=== PATIENT | female | born 1950 | race African-American/Black ===

== ENCOUNTER → 2016-06-09 | Outpatient (CLI) | payer MEDICAID | LOC: WI 12:37 | PROVIDERS: ATTEND Internal Medicine | DX: Z12.31 Encounter for screening mammogram for malignant neoplasm of breast (principal) | CPT/HCPCS: 77063; G0202; 77067 ==

== ENCOUNTER 2017-07-12 15:06 | Day surgery (SDC) | payer MEDICAID ==
[2017-07-12] MEDS ORDERED: NALOXONE HCL INJ/PF 0.4 MG/1 ML SDV ONE (15:33)
[2017-07-12] MEDS ORDERED: EPINEPHRINE INJ 1 MG/10 ML DISP.SYRIN ONE (15:34)
[2017-07-12] MEDS ORDERED: GLUCAGON,HUMAN RECOMB 1 MG INJ ONE (15:34)
[2017-07-12] MEDS ORDERED: FENTANYL CITRATE INJ/PF 100 MCG/2 ML AMPUL ONE (15:34)
[2017-07-12] MEDS ORDERED: FLUMAZENIL INJ 0.5 MG/5 ML VIAL ONE (15:34)
[2017-07-12] MEDS: MIDAZOLAM 2 MG/2 ML INJ ONE ×2 (16:02→16:08)
--- NOTE | 2017-07-12 17:00 | Operative Report ---
Operative Report DATE OF SURGERY: 07/12/17 Operative Report: Pre-op diagnosis: Rectal bleeding and IBS Post-op diagnosis: 1. Sigmoid diverticulum 2. Limited view of the colon 3. Need for sedation reversal 4. Transient wide-complex tachycardia Surgery: Colonoscopy Medications: Versed 3 mg Fentanyl 100 mcg, Narcan 0.4 mg, Romazicon 0.5 mg IV push Tissue removed: None Procedure: After informed consent obtained from patient, conscious sedation was achieved. A digital rectal examination was performed and this was unremarkable. The colonoscope was inserted into the rectum and advanced to the cecum. The appendiceal orifice and the terminal ileum were both identified. The mucosa was examined into details as the colonoscope was slowly pulled out of the patient. The endoscope was retroflexed in the rectum. Patient tolerated the procedure well. Findings: View of all of the colon was limited due to retained stool. No large lesions are identified but small and flat polyps will be missed. A single diverticulum was noted in the sigmoid colon. Rectum: Normal except for internal hemorrhoids Plan: At the end of the procedure patient O2 saturation dropped to the 60s and she was not breathing as well. She received Romazicon and Narcan with immediate response. Her cardiac rhythm did change from normal to a wide-complex tachycardia with a maximum rate of 98 lasting for about 8mins. Her blood pressure remained stable during this episode. A 12-lead EKG showed sinus rhythm. She will be observed overnight with cardiology consult. She will need a repeat colonoscopy at some point in the future OPERATION: .
[2017-07-12 17:31] LABS: ABSOLUTE EOSINOPHILS # (AUTO) 0.1 10^3/uL (0.0-0.6); ABSOLUTE LYMPHOCYTES (AUTO) 1.5 10^3/uL (0.5-4.7); ABSOLUTE MONOCYTES (AUTO) 0.4 10^3/uL (0.1-1.4); ABSOLUTE NEUT (AUTO) 4.4 10^3/uL (1.7-8.2); BASOPHILS % (AUTO) 0.3 % (0-2); EOSINOPHILS % (AUTO) 1.9 % (0-6); HEMATOCRIT 38.3 % (36.0-47.0); HEMOGLOBIN 12.2 g/dL (12.0-15.5); LYMPHOCYTES % (AUTO) 22.7 % (13-45); MEAN CORPUSCULAR HEMOGLOBIN 29.5 pg (27.0-33.4); MEAN CORPUSCULAR VOLUME 92 fl (80-97); MONOCYTES % (AUTO) 6.5 % (3-13); PLATELET COUNT 170 10^3/uL (150-450); RED BLOOD COUNT 4.15 10^6/uL (3.72-5.28); RED CELL DISTRIBUTION WIDTH 14.7 % (11.5-14.0); SEGMENTED NEUTROPHILS % (AUTO) 68.6 % (42-78); TOTAL CELLS COUNTED % (AUTO) 100 %; WHITE BLOOD COUNT 6.5 10^3/uL (4.0-10.5)
[2017-07-12 17:57] LABS: ALANINE AMINOTRANSFERASE 31 U/L (9-52); ALBUMIN 3.2 g/dL (3.5-5.0); ALKALINE PHOSPHATASE 102 U/L (38-126); ASPARTATE AMINO TRANSFERASE 23 U/L (14-36); BILIRUBIN,DIRECT 0.2 mg/dL (0.0-0.4); BILIRUBIN,TOTAL 0.9 mg/dL (0.2-1.3); BLOOD UREA NITROGEN 16 mg/dL (7-20); CALCIUM 9.1 mg/dL (8.4-10.2); CARBON DIOXIDE 31 mmol/L (22-30); CREATINE KINASE 305 U/L (30-135); POTASSIUM 3.9 mmol/L (3.6-5.0); SODIUM 146.7 mmol/L (137-145); TOTAL PROTEIN 5.8 g/dL (6.3-8.2)
[2017-07-12 17:59] LABS: ANION GAP 10 (5-19); CHLORIDE 106 mmol/L (98-107)
[2017-07-12 18:00] LABS: GLUCOSE 152 mg/dL (75-110)
[2017-07-12 18:08] LABS: CREATINE KINASE MB 2.75 ng/mL (<4.55); TROPONIN I 0.035 ng/mL
[2017-07-12] MEDS ORDERED: 1/2 NORMAL SALINE 1,000 ML IV PRN (18:16)
--- NOTE | 2017-07-12 19:07 | PDOC CONSULTATION ---
Consultation Consult Date: 07/12/17 Attending physician:: ARPITA ARIAS Consult reason:: Cardiac dysrhythmia History of Present Illness Admission Date/PCP: ROBINSON MENDOZA MD Patient complains of: No complaints with from the patient History of Present Illness: JOSE BAKER is a 67 year old female who had colonoscopy earlier today. Towards the end of the procedure patient O2 saturation dropped to the 60s and she was not breathing as well. She received Romazicon and Narcan with immediate response. Her cardiac rhythm did change from normal to a wide- complex tachycardia with a maximum rate of 98 lasting for about 8mins. Her blood pressure remained stable during this episode. A 12-lead EKG showed sinus rhythm. Rhythm strip left in the chart was reviewed by me. It showed sinus rhythm with bundle branch block pattern. When patient was seen she was still under the effect of sedation and could not give any history. Patient also has history of myotonic dystrophy. She has generalized weakness Past Medical History Cardiac Medical History: Reports: Hypertension Denies: Coronary Artery Disease, Myocardial Infarction Pulmonary Medical History: Reports: Pneumonia Denies: Asthma, Bronchitis, Chronic Obstructive Pulmonary Disease (COPD) Neurological Medical History: Denies: Seizures GI Medical History: Denies: Hepatitis, Hiatal Hernia Musculoskeltal Medical History: Denies: Arthritis Hematology: Reports: Anemia Denies: Sickle Cell Disease Past Surgical History Past Surgical History: Reports: Hysterectomy Denies: Amputation, Mastectomy, Pacemaker Social History Information Source: [facility] Records Smoking Status: Former Smoker - Advance Directive Resuscitation Status: Full Code Family History Family History: Hypertension, Other Parental Family History Reviewed: Yes Children Family History Reviewed: Yes Sibling(s) Family History Reviewed.: Yes Medication/Allergy Home Medications: Budesonide/Formoterol Fumarate [Symbicort 160-4.5 Mcg Inhaler] 2 puff IH Q12 06/22 Furosemide [Lasix 40 mg Tablet] 40 mg PO DAILY 07/08/17 Gabapentin 300 mg PO Q12 07/08/17 Glipizide [Glipizide ER] 5 mg PO DAILY 07/08/17 Potassium Chloride 10 meq PO TID 07/08/17 Simvastatin 40 mg PO DAILY 07/08/17 Valacyclovir HCl [Valacyclovir] 500 mg PO DAILY 07/08/17 Allergies/Adverse Reactions: oxycodone HCl [From Percocet] Allergy (Verified 07/12/17 15:12) itch all over Review of Systems ROS unobtainable: Due to mental status, Other - Patient under effect of previous sedation Physical Exam Vital Signs: Temp Pulse Resp BP Pulse Ox 98 F 81 14 160/88 H 100 07/12/17 17:05 07/12/17 17:20 07/12/17 17:20 07/12/17 17:20 07/12/17 17:20 Intake & Output 07/11/17 07/12/17 07/13/17 06:59 06:59 06:59 Intake Total 400 Balance 400 Weight 81.65 kg Exam: GENERAL: well-nourished and in no acute distress. Patient lethargic. She is still under sedation effect. Orientation could not be checked. HEAD: Atraumatic, normocephalic. EYES: Pupils equal round and reactive to light, extraocular movements intact, sclera anicteric, conjunctiva are normal. ENT: TMs normal, nares patent, oropharynx clear without exudates. Moist mucous membranes. No oral ulcerations or bleeding gums noted NECK: supple without lymphadenopathy. Trachea is central. No cervical or axillary lymphadenopathy noted. Carotids are 2+, JVD WNL LUNGS: Respiration seems nonlabored, no significant accessory muscle action noted. Breath sounds clear to auscultation bilaterally and equal noted. No wheezes rales or rhonchi noted. No significant dullness noted on percussion. CHEST: Palpation of the chest wall shows no significant chest wall tenderness. HEART: [place] [employer], No PSH, 1/6 SONY aortic area, 1/6 cervantes systolic murmur mitral area, no rubs, no gallops. ABDOMEN: Soft, no significant tenderness appreciated, normoactive bowel sounds. No guarding, no rebound. No rigidity noted . No masses appreciated. EXTREMITIES: Pedal pulses are 1-2+, no calf tenderness noted. No clubbing or cyanosis. negative pedal edema noted NEUROLOGICAL: No facial asymmetry noted. Muscles generally hypotonic. A full neurological exam could not be performed. PSYCH: Psych exam could not be performed. SKIN: No significant ecchymosis, skin is noted to be warm. MUSCULOSKELETAL EXAM: No significant acute joint swelling noted. Results Laboratory Results: 07/12/17 17:10 07/12/17 17:10 07/12/17 07/12/17 17:10 17:10 WBC 6.5 RBC 4.15 Hgb 12.2 Hct 38.3 MCV 92 MCH 29.5 MCHC 32.0 RDW 14.7 H Plt Count 170 Seg Neutrophils % 68.6 Lymphocytes % 22.7 Monocytes % 6.5 Eosinophils % 1.9 Basophils % 0.3 Absolute Neutrophils 4.4 Absolute Lymphocytes 1.5 Absolute Monocytes 0.4 Absolute Eosinophils 0.1 Absolute Basophils 0.0 Sodium 146.7 H Potassium 3.9 Chloride 106 Carbon Dioxide 31 H Anion Gap 10 BUN 16 Creatinine 1.09 Est GFR ( Amer) > 60 Est GFR (Non-Af Amer) 50 L Glucose 152 H Calcium 9.1 Total Bilirubin 0.9 AST 23 ALT 31 Alkaline Phosphatase 102 Total Protein 5.8 L Albumin 3.2 L 07/12/17 07/12/17 17:10 17:10 Creatine Kinase 305 H CK-MB (CK-2) 2.75 Troponin I 0.035 EKG Comments: Sinus rhythm with minor nonspecific T-wave inversions noted. 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 Patient's troponin I is borderline abnormal. Could be related to hypoxemia. Will obtain further troponin I. Patient to have a nuclear stress test. Will also schedule patient for a 2D echocardiogram. Patient was noted to have wide-complex QRS which I feel is bundle branch block pattern. Patient may have underlying CAD at her age. Therefore will evaluate with a 2D echocardiogram and nuclear stress test. This was discussed with Dr. Arias. Hypertension: Currently blood pressure stable. Blood pressure goal is 135/85 or less in this patient with diabetes. Diabetes: Currently under satisfactory management. Monitor blood sugars. Abnormal troponin I: Troponin I is minimally abnormal and could well be from hypoxemia. However because of intermittent left bundle branch block pattern which I suspect was present, and multiple cardiac risk factors, will schedule patient for a nuclear stress test and a 2D echocardiogram. Patient has a potentially serious problem and medical decision making complexity was high. - Time Time Spent: 30 to 50 Minutes Medications reviewed and adjusted accordingly: Yes
--- NOTE | 2017-07-12 19:29 | EKG REPORT ---
SEVERITY:- ABNORMAL ECG - SINUS RHYTHM NONSPECIFIC T ABNORMALITIES, LATERAL LEADS PROLONGED QT INTERVAL : Confirmed by: Rei Diallo MD 12-Jul-2017 19:28:19
[2017-07-13] MEDS ORDERED: REGADENOSON INJ 0.4 MG/5 ML DISP.SYRIN IV ONE (13:10)
[2017-07-13] MEDS ORDERED: AMINOPHYLLINE INJ/PF 250 MG/10 ML SDV IV ONE (13:10)
--- NOTE | 2017-07-13 13:36 | DRAGON STRESS TEST REPORT ---
INTRAVENOUS LEXISCAN CARDIOLITE STRESS TEST USING SINGLE PHOTON EMMISION COMPUTERIZED TOMOGRAPHIC. DATE OF PROCEDURE: July 13, 2017, INDICATION : Transient left bundle branch block, cardiac dysrhythmia, abnormal EKG CARDIAC RISK FACTORS: Diabetes, dyslipidemia, myopathy RESTING EKG: Sinus rhythm, nonspecific T-wave inversion anteriorly. STRESS EKG: Transient left bundle branch block, this reverted to normal at the end of procedure. REASON FOR TERMINATION: Protocol. PROCEDURE REPORT: Baseline heart rate 83 beats per minute with blood pressure of 143/72. Patient had no significant complaints. Patient was bolused with Lexiscan 0.4 mg intravenously followed by saline bolus. Heart rate at 2 minutes post bolus 92 with a blood pressure of 147/64. 3 minutes post bolus heart rate 85 with blood pressure of 138/65. No significant EKG changes were noted. Patient had no significant complaints during the procedure or postprocedure. Patient injected with Aminophyllin 75 mg at 3 minutes or later after Lexiscan bolus. CONCLUSIONS: Normal EKG and hemodynamic response to IV LexiScan. NUCLEAR DATA: At rest the patient was given 12.78 millicuries of technetium 99 sestamibi injected intravenously. As per protocol rest gated SPECT images were obtained. On day of stress test, the patient was given intravenous LexiScan at a dose of 0.4 mg in 5 mL intravenously, followed by flush with normal saline. Subsequently the stress dose of 39.3 millicuries of technetium 99 sestamibi was injected intravenously. As per protocol stress gated images were obtained. NUCLEAR INTERPRETATION: Both raw and processed data were used for interpretation. Visual, qualitative, computer-generated quantitative data was used. There was good myocardial uptake of technetium compound. Motion artifact and soft tissue attenuations were noted. Increased visceral uptake was noted. Increased diaphragmatic attenuation artifact noted. Overall quality of imaging was somewhat suboptimal. No definitive areas of transient perfusion defect noted, No definitive areas of fixed perfusion defect or scars noted except for small area of mild fixed defect in the distal inferolateral wall. EKG gated imaging showed LV EF at 72 %, rest and stress gated EF similar visually. T. I D. ratio was 1.06. Lung heart ratio noted to be within normal limits 0.46. No significant extracardiac and abnormal radiotracer activities were noted. RV free wall uptake was noted to be WNL. IMPRESSION: Also refer to comments under nuclear interpretation. Also test results needs to be interpreted in the context of pretest probability. Study quality was somewhat suboptimal therefore clinical correlation is requested. 1. No definitive areas of transient perfusion defect noted. 2. There is no definitive scintigraphic evidence of myocardial infarction/scar except for a small area of mild fixed defect in the distal inferior wall. 3. EKG gated imaging shows left ventricular ejection fraction of approx. 72 %. 4. Clinical correlation requested as occasionally single vessel disease or balanced ischemia could be missed. In approximately 10% of the cases Lexiscan may not cause adequate vasodilatory stress. RECOMMENDATIONS: Aggressive risk factor modification and medical management. Further evaluation may be needed if continued symptoms or other high risk indicators are noted on clinical evaluation. Close cardiology follow-up is also recommended. Clinical correlation with echocardiogram derived ejection fraction. Inability to exercise by itself can lead to increased cardiovascular event risks. Consider cardiology consultation and or follow-up if clinically indicated. 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 KIRIT
[2017-07-13 15:49] LABS: TROPONIN I 0.02 ng/mL
--- NOTE | 2017-07-13 16:14 | HX & PHYSICAL/DISCHG SUMMARY E ---
History and Physical/Discharge Summary NAME: JOSE BAKER : 1950 AGE: 67Y ADMITTED: 07/12/2017 DISCHARGED: 07/13/2017 CHIEF COMPLAINT: Cardiac arrhythmia. HISTORY OF PRESENT ILLNESS: This is a 67-year-old patient who was brought into the hospital for a colonoscopy. She received Versed and fentanyl, but she had to be revived with Narcan and Romazicon. At the end of the procedure, while she was receiving reversal, her cardiac rhythm changed from sinus to a wide complex tachycardia. The maximum rate was at about 96 beats per minute. Her blood pressure remained stable during this time. The change in rhythm lasted for about 8 minutes, and she converted back to sinus. She did not have any chest pain, and responded almost immediately to the Romazicon and the Narcan. She is being kept in the hospital for observation and for cardiac evaluation. She has no previous cardiac history, but she is diabetic and has muscular dystrophy. Her colonoscopy was limited, due to retained stool. PAST MEDICAL HISTORY: 1. Muscular dystrophy. 2. Diabetes. 3. Anxiety/depression. 4. Irritable bowel syndrome. PAST SURGICAL HISTORY: 1. Hysterectomy. 2. Cholecystectomy. 3. EGD. 4. Colonoscopy. 5. Cataract surgery. ALLERGIES: PERCOCET. REVIEW OF SYSTEMS: Other than the above, it is noncontributory. SOCIAL HISTORY: Not significant. FAMILY HISTORY: Not significant. PHYSICAL EXAMINATION: GENERAL: An obese lady, in no distress. VITAL SIGNS: She has a heart rate of 82, blood pressure 140/80. HEENT: No pallor, no jaundice. Oropharynx normal. NECK: No bruit, no JVD. CHEST: No deformity. LUNGS: Clear. HEART: Heart sounds 1 and 2 normal, without murmurs. ABDOMEN: Soft and nontender. Liver and spleen not palpable. Bowel sounds normal. NEUROLOGIC: She has weakness in all extremities. LABORATORY TESTS: Showed a sodium of 146, creatinine of 1.09. Normal LFT. Creatinine kinase of 305. CK-MB of 2.75 and troponin of 0.035. Albumin is 3.2. A CBC was normal. She had an EKG immediately postop that showed prolonged QT and sinus rhythm, with nonspecific T wave abnormality. ASSESSMENT AND PLAN: Cardiac dysrhythmia. She had an 8-minute long wide complex tachycardia immediately postop. Her colonoscopy was complicated by sedation reversal, but her blood pressure remained normal throughout. She is asymptomatic at this time. She will be evaluated by Dr. Posey, and further management will depend on his evaluation. She will have another cardiac enzymes drawn. If her followup troponin is unremarkable, she will be discharged home. She had a Cardiolite stress test that was unremarkable, and will also likely be having an echocardiogram before going home. She will follow up with Dr. Posey as an outpatient. She will need a repeat colonoscopy at some point in the future. DICTATING PHYSICIAN: ARPITA ARIAS M.D. [id number] PHY#: [id number] ID: [id number] JOB#: [id number] ACCT: [id number] cc:ARPITA ARIAS M.D. >
--- NOTE | 2017-07-13 16:44 | H&P/Discharge Summary ---
Discharge Summary Admission Date/PCP: ROBINSON MENDOZA MD July 12, 2017 Discharge Date: 07/13/17 Resuscitation Status: Full Code - Discharge Diagnosis (1) Acute respiratory failure Is this a current diagnosis for this admission?: Yes (2) Cardiac dysrhythmia Is this a current diagnosis for this admission?: Yes (3) Myotonic muscular dystrophy Is this a current diagnosis for this admission?: Yes (4) Diabetes Is this a current diagnosis for this admission?: Yes (5) HTN (hypertension) Is this a current diagnosis for this admission?: Yes Home Medications: Budesonide/Formoterol Fumarate [Symbicort 160-4.5 Mcg Inhaler] 2 puff IH Q12 06/22 Furosemide [Lasix 40 mg Tablet] 40 mg PO DAILY 07/08/17 Gabapentin 300 mg PO Q12 07/08/17 Glipizide [Glipizide ER] 5 mg PO DAILY 07/08/17 Potassium Chloride 10 meq PO TID 07/08/17 Simvastatin 40 mg PO DAILY 07/08/17 Valacyclovir HCl [Valacyclovir] 500 mg PO DAILY 07/08/17 Allergies/Adverse Reactions: oxycodone HCl [From Percocet] Allergy (Verified 07/12/17 15:12) itch all over Discharge Diet: Cardiac, Diabetic Discharge Activity: Activity As Tolerated History of Present Illness Admission Date/PCP: ROBINSON MENDOZA MD Patient complains of: Got short of breath will getting colonoscopy History of Present Illness: JOSE BAKER is a 67 year old female who had colonoscopy on July [address] Palumbo. Towards the end of the procedure and while in the endocopy suite patient oxygen saturation dropped to the 60s and she was not breathing well. She received Romazicon and Narcan with immediate response. Patient had received fentanyl and Versed while in the endoscopy suite. Her cardiac rhythm did change from normal to a wide-complex tachycardia with a maximum rate of 98 lasting whihc last around 8mins. Her blood pressure remained stable during this episode. A 12-lead EKG showed sinus rhythm. Rhythm strip showed sinus rhythm with bundle branch block pattern. Dr. Palmubo consulted Dr. Posey who then recommended for patient to be admitted for observation. Patient has history of myotonic dystrophy, diabetes and high blood pressure. Due to myotonic dystrophy she admits having generalized weakness. Is my understanding that the procedure could not be finalized since patient was not properly prepped Patient was admitted for observation status. There were no cardiac dysrhythmias while hospitalized. Troponin was trended and negative. Cardiology recommended echocardiogram but since she was stable considered that this could be follow-through as outpatient. It is our impression that primary issue is that patient suffers from myotonic dystrophy with generalized weakness therefore making her more prone to respiratory depression when Using such agents such as fentanyl and Versed. Transient hypoxemia can cause cardiac depression. Patient has been recommended that in the future due to this particular medical condition medical condition, we recommend to go to a tertiary center. Patient expressed that she lacks transportation therefore opted to come to this facility. Since patient had been saturating well and has been stable prompted to discharge. Patient served as H&P and discharge summary Past Medical History Cardiac Medical History: Reports: Hypertension Denies: Coronary Artery Disease, Myocardial Infarction Pulmonary Medical History: Reports: Pneumonia Denies: Asthma, Bronchitis, Chronic Obstructive Pulmonary Disease (COPD) EENT Medical History: Reports: Cataracts Neurological Medical History: Reports: None, Seizures Endocrine Medical History: Reports: Diabetes Mellitus Type 2 Renal/ Medical History: Reports: None GI Medical History: Reports: None Musculoskeltal Medical History: Reports: None Skin Medical History: Reports: None Psychiatric Medical History: Reports: None Traumatic Medical History: Reports: None Hematology: Reports: Anemia Denies: Sickle Cell Disease Infectious Medical History: Reports: None Past Surgical History Past Surgical History: Reports: Hysterectomy Denies: Amputation, Mastectomy, Pacemaker Social History Information Source: Patient Lives with: Family Smoking Status: Never Smoker Frequency of Alcohol Use: None Hx Recreational Drug Use: No Drugs: None Hx Prescription Drug Abuse: No - Advance Directive Resuscitation Status: Full Code Family History Family History: CVA, DM, Hypertension, Malignancy, Other - Currently not available. Parental Family History Reviewed: Yes Children Family History Reviewed: Yes Sibling(s) Family History Reviewed.: Yes Review of Systems Constitutional: PRESENT: weakness. ABSENT: anorexia, chills, fever(s), headache (s) Eyes: PRESENT: visual disturbances Ears: ABSENT: hearing changes Nose, Mouth, and Throat: ABSENT: mouth pain, sore throat Cardiovascular: ABSENT: chest pain, dyspnea on exertion, edema, palpitations Respiratory: ABSENT: cough, dyspnea, hemoptysis Gastrointestinal: ABSENT: abdominal pain, diarrhea, nausea, vomiting Genitourinary: ABSENT: dysuria, hematuria Neurological: ABSENT: dizziness, syncope Psychiatric: ABSENT: anxiety Endocrine: ABSENT: polydipsia, polyphagia, polyuria Physical Exam Vital Signs: Temp Pulse Resp BP Pulse Ox 98.7 F 78 16 141/78 H 100 07/13/17 15:24 07/13/17 15:24 07/13/17 15:24 07/13/17 15:24 07/13/17 15:24 Intake & Output 07/12/17 07/13/17 07/14/17 06:59 06:59 06:59 Intake Total 1580 100 Balance 1580 100 Weight 83.9 kg General appearance: PRESENT: no acute distress, cooperative, well-developed, well-nourished Head exam: PRESENT: atraumatic, normocephalic Eye exam: PRESENT: conjunctiva pink, EOMI, PERRLA Ear exam: PRESENT: normal external ear exam Mouth exam: PRESENT: moist Neck exam: PRESENT: full ROM. ABSENT: JVD, lymphadenopathy, tenderness Respiratory exam: PRESENT: clear to auscultation gabriela Cardiovascular exam: PRESENT: RRR. ABSENT: diastolic murmur, systolic murmur Vascular exam: PRESENT: normal capillary refill GI/Abdominal exam: PRESENT: normal bowel sounds, soft. ABSENT: tenderness Extremities exam: PRESENT: full ROM, pedal edema Musculoskeletal exam: PRESENT: ambulatory Neurological exam: PRESENT: alert, awake, oriented to person, oriented to place , oriented to time, oriented to situation, CN II-XII grossly intact Psychiatric exam: PRESENT: appropriate affect, normal mood Skin exam: PRESENT: intact, normal color Results Laboratory Results: 07/12/17 17:10 07/12/17 17:10 07/12/17 07/12/17 17:10 17:10 WBC 6.5 RBC 4.15 Hgb 12.2 Hct 38.3 MCV 92 MCH 29.5 MCHC 32.0 RDW 14.7 H Plt Count 170 Seg Neutrophils % 68.6 Lymphocytes % 22.7 Monocytes % 6.5 Eosinophils % 1.9 Basophils % 0.3 Absolute Neutrophils 4.4 Absolute Lymphocytes 1.5 Absolute Monocytes 0.4 Absolute Eosinophils 0.1 Absolute Basophils 0.0 Sodium 146.7 H Potassium 3.9 Chloride 106 Carbon Dioxide 31 H Anion Gap 10 BUN 16 Creatinine 1.09 Est GFR ( Amer) > 60 Est GFR (Non-Af Amer) 50 L Glucose 152 H Calcium 9.1 Total Bilirubin 0.9 AST 23 ALT 31 Alkaline Phosphatase 102 Total Protein 5.8 L Albumin 3.2 L 07/12/17 07/12/17 07/13/17 17:10 17:10 14:34 Creatine Kinase 305 H CK-MB (CK-2) 2.75 Troponin I 0.035 0.020 NT-Pro-B Natriuret Pep 199 Qualifiers - * PATIENT BEING DISCHARGED WITH ANY OF THE FOLLOWING DIAGNOSIS: No Assessment & Plan - Time Time Spent: 30 to 50 Minutes Medications reviewed and adjusted accordingly: Yes Anticipated dischagre: Home Within: Other - same day - Plan Summary Plan Summary: Discharge home. Patient to follow-up with primary care provider and Dr. Posey as scheduled
[2017-07-13 17:15] VITALS: BP 137/87
--- NOTE | 2017-07-14 10:27 | PDOC PROGRESS REPORT ---
Subjective Progress Note for:: 07/13/17 Subjective:: Patient seen in the morning on rounds. Patient seen also after nuclear stress test was completed. In the morning nuclear stress test procedure, rationale etc. discussed. Patient was seen during stress test and also after the stress test. Nuclear stress test results discussed. Questions were answered. Telemetry strip shows sinus rhythm without any significant tachycardia or bradycardia. 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 Alert and oriented x3 HEAD: Atraumatic, normocephalic. EYES: Pupils equal round and reactive to light, extraocular movements intact, sclera anicteric, conjunctiva are normal. ENT: TMs normal, nares patent, oropharynx clear without exudates. Moist mucous membranes. No oral ulcerations or bleeding gums noted NECK: supple without lymphadenopathy. Trachea is central. No cervical or axillary lymphadenopathy noted. Carotids are 2+, JVD WNL LUNGS: Respiration seems nonlabored, no significant accessory muscle action noted. Breath sounds clear to auscultation bilaterally and equal noted. No wheezes rales or rhonchi noted. No significant dullness noted on percussion. CHEST: Palpation of the chest wall shows no significant chest wall tenderness. 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 ABDOMEN: Soft, no significant tenderness appreciated, normoactive bowel sounds. No guarding, no rebound. No rigidity noted . No masses appreciated. EXTREMITIES: Pedal pulses are 1-2+, no calf tenderness noted. No clubbing or cyanosis. negative pedal edema noted NEUROLOGICAL: Focused neurological exam showed no significant neurologic deficit. Normal speech, generalized skeletal muscle weakness noted. PSYCH: Normal mood, normal affect. Judgment and insight within normal limits. SKIN: No significant ecchymosis, skin is noted to be warm. MUSCULOSKELETAL EXAM: No significant acute joint swelling noted. Results Laboratory Results: 07/12/17 17:10 07/12/17 17:10 07/12/17 07/12/17 07/13/17 17:10 17:10 14:34 Creatine Kinase 305 H CK-MB (CK-2) 2.75 Troponin I 0.035 0.020 NT-Pro-B Natriuret Pep 199 EKG Comments: Telemetry strips shows sinus rhythm without any sustained tachycardia or bradycardia. 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 skilled nursing insulin use status Diabetes mellitus complication status : with unspecified complications Qualified Code(s): E11.8 - Type 2 diabetes mellitus with unspecified complications Is this a current diagnosis for this admission?: Yes (5) Elevated troponin I level Is this a current diagnosis for this admission?: Yes (6) HTN (hypertension) Qualifiers: Hypertension type: essential hypertension Qualified Code(s): I10 - Essential (primary) hypertension Is this a current diagnosis for this admission?: Yes - Notes Notes: Cardiac dysrhythmia: Patient was noted to have left bundle branch block pattern during nuclear stress test. Nuclear stress test report was reviewed with the patient. It was felt that we should obtain another troponin I and BNP level. It was also felt that a 2D echocardiogram is needed and was ordered. 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 Skeletal myopathy especially certain kinds can affect the heart. A 2D echocardiogram was ordered. Abnormal electrocardiogram: Patient has some nonspecific T-wave inversion. This was evaluated with a nuclear stress test which was noted to be negative for ischemia but probable mild fixed defect noted in the distal inferolateral wall. Explained that stress test could sometimes miss one blockage. Diabetes: Discussed good management of diabetes but avoid any sustained hyperglycemia or hypoglycemia. Elevated troponin I level: Another troponin I was ordered. As long as the trend was coming down, instruction left with the patient that she could be discharged especially after echo is being done as patient has significant mobility problem and cannot get to appointments easily. Hypertension: Blood pressure seems reasonably well controlled. Blood pressure goal is 135/85 or less. - Time Time with patient: Greater than 35 minutes - Patient was seen multiple times. Total time exceeds 35 minutes. In the morning nuclear stress test procedure, risks benefits, alternatives were discussed. Patient seen during the stress test. Patient also seen after stress test when results were discussed with the patient in detail. Patient's questions were answered. Nuclear stress test results were discussed with the patient. Patient was informed that no definitive evidence of pharmacologic stress-induced ischemia noted. Patient informed that occasionally significant single vessel disease or balanced ischemia could be missed. However based on the current study results, would recommend aggressive risk factor modification and medical therapy. It may also be worthwhile to consider evaluation or empiric management of other causes of chest pain. Should no other cause be found and if persistent in having chest pain, then cardiac catheterization should be considered. Right now, recommendations are for aggressive risk factor modification and medical management. Medications reviewed and adjusted accordingly: Yes
== END 2017-07-13 17:30 | disposition home or self-care (01) ==
LOC: END 15:06 → 4N 18:13 → END 07-13 17:30
PROVIDERS: ATTEND Internal Medicine Gastroenterology
DX: K58.2 Mixed irritable bowel syndrome (principal); I49.9 Cardiac arrhythmia, unspecified; R79.89 Other specified abnormal findings of blood chemistry; K62.5 Hemorrhage of anus and rectum; K57.30 Diverticulosis of large intestine without perforation or abscess without bleeding; G71.11 Myotonic muscular dystrophy; I10 Essential (primary) hypertension; D64.9 Anemia, unspecified; E11.8 Type 2 diabetes mellitus with unspecified complications; R94.31 Abnormal electrocardiogram [ECG] [EKG]; G71.0 Muscular dystrophy; K58.9 Irritable bowel syndrome, unspecified; J80 Acute respiratory distress syndrome; E78.00 Pure hypercholesterolemia, unspecified; E66.3 Overweight; Z87.891 Personal history of nicotine dependence; Z79.899 Other long term (current) drug therapy; Z79.84 Long term (current) use of oral hypoglycemic drugs; Z87.11 Personal history of peptic ulcer disease; Z88.5 Allergy status to narcotic agent; Z68.27 Body mass index [BMI] 27.0-27.9, adult
CPT/HCPCS: 45378; 36415; 82553; 82962; 82550; 85025; 80076; 80048; 84484; 83880; 93017; 78452; 93005; 93010; A9500; J3490; J2785; J2250; J3010; J2310; J0280; Q9969; J0171; J1610

== ENCOUNTER 2017-08-30 14:40 | Day surgery (SDC) | payer MEDICAID ==
[2017-08-30] MEDS ORDERED: DIPHENHYDRAMINE HCL 50 MG/ML VIAL ONE (15:27)
[2017-08-30] MEDS ORDERED: ONDANSETRON HCL INJ/PF 4 MG/2 ML SDV ONE (15:28)
[2017-08-30] MEDS ORDERED: NALOXONE HCL INJ/PF 0.4 MG/1 ML SDV ONE (15:28)
[2017-08-30] MEDS ORDERED: FENTANYL CITRATE INJ/PF 100 MCG/2 ML AMPUL ONE (15:28)
[2017-08-30] MEDS ORDERED: MIDAZOLAM 2 MG/2 ML INJ ONE (15:28)
[2017-08-30] MEDS ORDERED: FLUMAZENIL INJ 0.5 MG/5 ML VIAL ONE (15:29)
[2017-08-30] MEDS ORDERED: GLUCAGON,HUMAN RECOMB 1 MG INJ ONE (15:29)
[2017-08-30] MEDS ORDERED: EPINEPHRINE INJ 1 MG/10 ML DISP.SYRIN ONE (15:29)
--- NOTE | 2017-08-30 17:34 | Operative Report ---
Operative Report DATE OF SURGERY: 08/30/17 Operative Report: Pre-op diagnosis: Rectal bleeding and history of incomplete colonoscopy Post-op diagnosis: 1. Cecal polyp 2. Internal and external hemorrhoids Surgery: Colonoscopy with polypectomy Medications: Versed 1mg, Fentanyl 50mcg IV push Tissue removed: Procedure: After informed consent obtained from patient, conscious sedation was achieved. A digital rectal examination was performed and this was unremarkable. The colonoscope was inserted into the rectum and advanced to the cecum. The appendiceal orifice and the terminal ileum were both identified. The mucosa was examined into details as the colonoscope was slowly pulled out of the patient. The endoscope was retroflexed in the rectum. Patient tolerated the procedure well. Findings Cecum: 4 mm sessile polyp removed with the cold snare Ascending colon: Normal Transverse colon: Normal Descending colon: Normal Sigmoid colon: Normal Rectum: Normal except for internal hemorrhoids Plan: Await pathology. High-fiber diet OPERATION: .
[2017-08-30 18:28] VITALS: BP 126/67
== END 2017-08-30 18:45 | disposition home or self-care (01) ==
LOC: END 14:40
PROVIDERS: ATTEND Internal Medicine Gastroenterology
DX: D12.0 Benign neoplasm of cecum (principal); K64.4 Residual hemorrhoidal skin tags; K64.8 Other hemorrhoids; K62.5 Hemorrhage of anus and rectum; K58.0 Irritable bowel syndrome with diarrhea; G71.11 Myotonic muscular dystrophy; E78.00 Pure hypercholesterolemia, unspecified; E11.9 Type 2 diabetes mellitus without complications; K58.9 Irritable bowel syndrome, unspecified; R00.0 Tachycardia, unspecified; Z79.51 Long term (current) use of inhaled steroids; Z79.84 Long term (current) use of oral hypoglycemic drugs; Z87.11 Personal history of peptic ulcer disease; Z79.899 Other long term (current) drug therapy; Z88.5 Allergy status to narcotic agent
CPT/HCPCS: 45385; 82962; 88305 ×2; J2250; J3010; J0171; J1200; J1610; J2310; J2405; J3490

== ENCOUNTER → 2017-10-17 | Outpatient (CLI) | payer MEDICARE, MEDICAID ==
--- NOTE | 2017-10-17 11:54 | WOMENS IMAGING REPORT ---
EXAM DESCRIPTION: 3D SCREENING MAMMO BILAT COMPLETED DATE/TIME: 10/17/2017 10:55 am REASON FOR STUDY: ROUTINE BILATERAL SCREENING;Z12.31 Z12.31 ENCNTR SCREEN MAMMOGRAM FOR MALIGNANT N EOPLASM OF KATIE COMPARISON: [id number] TECHNIQUE: Standard craniocaudal and mediolateral oblique views of each breast recorded using digita l acquisition and breast tomosynthesis. LIMITATIONS: None. FINDINGS: No masses, calcifications or architectural distortion. No areas of suspicion. Read with the assistance of CAD. .[facility] - R2 Cenova Version 1.3 .[facility] Imaging - R2 Cenova Version 1.3 .[facility] Imaging - R2 Cenova Version 2.4 .[facility] - R2 Cenova Version 2.4 .[facility] - R2 Job Service Specialist Version 9.2 IMPRESSION: NORMAL MAMMOGRAM. BIRADS 1. BREAST DENSITY: c. The breasts are heterogeneously dense, which may obscure small masses. BIRAD: 1 NEGATIVE RECOMMENDATION: ROUTINE SCREENING COMMENT: The patient has been notified of the results by letter per SA requirements. Additional no tification policies are in place for contacting patient with suspicious or incomplete findings. Quality ID #[id number]: The [employer] recommends an annual screening mammogram for women aged 40 years or over. This facility utilizes a reminder system to ensure that all patients receive reminder letters, and/or direct phone calls for appointments. This includes reminders for routine scr eening mammograms, diagnostic mammograms, or other Breast Imaging Interventions when appropriate. Th is patient will be placed in the appropriate reminder system. The [employer] (ACR) has developed recommendations for screening MRI of the breast s in certain patient populations, to be used in conjunction with mammography. Breast MRI surveillanc e may be appropriate for women with more than 20% lifetime risk of developing breast cancer as deter mined by genetic testing, significant family history of the disease, or history of mantle radiation f or Hodgkins Disease. ACR Practice Guidelines 2008. DBT Technology DBT is a type of tomographic mammography. With conventional mammography, overlapping breast tissue ma y make lesions difficult to detect, even with good compression. DBT uses an x-ray tube that rotates a round the breast, taking images at different angles. These images are then combined to create thin sl ices of the breast that the radiologist can view as a 3D reconstruction. The [facility] unit can perform full-field digital mammograms (2D imaging); or DBT (3D imaging); or both, in a combination mode that quickly performs both the mammogram and the tomosynthesis scan while the breast is still compressed. PQRS 6045F: Fluoroscopic imaging is not utilized for breast tomosynthesis. TECHNICAL DOCUMENTATION: FINDING NUMBER: (1) ASSESSMENT: (1) JOB ID: [id number] [employer]- All Rights Reserved Reading location - IP/workstation name: [email or web address]
== END ==
LOC: WI 10:19
PROVIDERS: ATTEND Internal Medicine
DX: Z12.31 Encounter for screening mammogram for malignant neoplasm of breast (principal)
CPT/HCPCS: 77063; 77067

== ENCOUNTER 2018-07-11 12:45 | Emergency (ER) | payer MEDICARE, MEDICAID ==
--- NOTE | 2018-07-11 13:32 | ER Document Report ---
ED Medical Screen (RME) - General Chief Complaint: Leg Pain Stated Complaint: LEG PAIN Time Seen by Provider: 07/11/18 13:24 Primary Care Provider: ROBINSON MENDOZA MD [Primary Care Provider] - Follow up as needed Mode of Arrival: Wheelchair Information source: Patient Notes: Patient presents emergency department with complaints of bilateral leg swelling for the past 4 months with reports of her legs weeping. Reports her legs are giving out. Reports that her doctor told her to come here because she may be going into heart failure. I have greeted and performed a rapid initial assessment of this patient. A comprehensive ED assessment and evaluation of the patient, analysis of test results and completion of the medical decision making process will be conducted by additional ED providers. Dictation of this chart was performed using voice recognition software; therefore, there may be some unintended grammatical errors. TRAVEL OUTSIDE OF THE [place] IN LAST 30 DAYS: No - Related Data Allergies/Adverse Reactions: oxycodone HCl [From Percocet] Allergy (Mild, Verified 07/11/18 12:50) itch all over Past Medical History - Past Medical History Cardiac Medical History: Reports: Hx Hypercholesterolemia, Hx Hypertension Denies: Hx Coronary Artery Disease, Hx Heart Attack Pulmonary Medical History: Reports: Hx Pneumonia Denies: Hx Asthma, Hx Bronchitis, Hx COPD Neurological Medical History: Denies: Hx Cerebrovascular Accident, Hx Seizures Endocrine Medical History: Reports: Hx Diabetes Mellitus Type 2 Renal/ Medical History: Denies: Hx Peritoneal Dialysis GI Medical History: Denies: Hx Hepatitis, Hx Hiatal Hernia, Hx Ulcer Musculoskeltal Medical History: Denies Hx Arthritis Infectious Medical History: Denies: Hx Hepatitis Past Surgical History: Reports: Hx Abdominal Surgery, Hx Hysterectomy, Hx Orthopedic Surgery, Hx Tubal Ligation. Denies: Hx Mastectomy, Hx Open Heart Surgery, Hx Pacemaker - Immunizations Hx Diphtheria, Pertussis, Tetanus Vaccination: Yes Physical Exam - Vital signs Vitals: Temp Pulse Resp BP Pulse Ox 98.0 F 90 14 104/68 100 07/11/18 13:05 07/11/18 13:05 07/11/18 13:05 07/11/18 13:05 07/11/18 13:05 Course - Vital Signs Vital signs: Temp Pulse Resp BP Pulse Ox 98.0 F 90 14 104/68 100 07/11/18 13:05 07/11/18 13:05 07/11/18 13:05 07/11/18 13:05 07/11/18 13:05 Doctor's Discharge - Discharge Referrals: ROBINSON MENDOZA MD [Primary Care Provider] - Follow up as needed
[2018-07-11 14:19] LABS: ABSOLUTE EOSINOPHILS # (AUTO) 0.1 10^3/uL (0.0-0.6); ABSOLUTE LYMPHOCYTES (AUTO) 2.2 10^3/uL (0.5-4.7); ABSOLUTE MONOCYTES (AUTO) 0.6 10^3/uL (0.1-1.4); ABSOLUTE NEUT (AUTO) 4.6 10^3/uL (1.7-8.2); BASOPHILS % (AUTO) 0.6 % (0-2); EOSINOPHILS % (AUTO) 1.9 % (0-6); HEMOGLOBIN 13.5 g/dL (12.0-15.5); MEAN CORPUSCULAR HEMOGLOBIN 30.7 pg (27.0-33.4); MEAN CORPUSCULAR HGB CONC 32.1 g/dL (32.0-36.0); MEAN CORPUSCULAR VOLUME 96 fl (80-97); MONOCYTES % (AUTO) 7.5 % (3-13); PLATELET COUNT 184 10^3/uL (150-450); RED BLOOD COUNT 4.39 10^6/uL (3.72-5.28); RED CELL DISTRIBUTION WIDTH 14.7 % (11.5-14.0); TOTAL CELLS COUNTED % (AUTO) 100 %; WHITE BLOOD COUNT 7.6 10^3/uL (4.0-10.5)
[2018-07-11 14:41] LABS: ALANINE AMINOTRANSFERASE 34 U/L (9-52); ALBUMIN 3.7 g/dL (3.5-5.0); ALKALINE PHOSPHATASE 112 U/L (38-126); ANION GAP 9 (5-19); ASPARTATE AMINO TRANSFERASE 31 U/L (14-36); BILIRUBIN,DIRECT 0.3 mg/dL (0.0-0.4); BILIRUBIN,TOTAL 0.9 mg/dL (0.2-1.3); BLOOD UREA NITROGEN 16 mg/dL (7-20); CALCIUM 9.5 mg/dL (8.4-10.2); CARBON DIOXIDE 31 mmol/L (22-30); CHLORIDE 109 mmol/L (98-107); GLUCOSE 129 mg/dL (75-110); POTASSIUM 3.8 mmol/L (3.6-5.0); TOTAL PROTEIN 6.8 g/dL (6.3-8.2)
--- NOTE | 2018-07-11 15:22 | RADIOLOGY REPORT (SQ) ---
EXAM DESCRIPTION: CHEST 2 VIEWS COMPLETED DATE/TIME: 07/11/2018 3:03 pm REASON FOR STUDY: sob COMPARISON: None. TECHNIQUE: Frontal and lateral radiographic views of the chest acquired. NUMBER OF VIEWS: Two view. LIMITATIONS: Poor inspiratory effort. FINDINGS: LUNGS AND PLEURA: Dependent bandlike density in both lung bases most consistent with atele ctasis. No effusions. MEDIASTINUM AND HILAR STRUCTURES: No masses or contour abnormalities. HEART AND VASCULAR STRUCTURES: Heart normal size. No evidence for failure. BONES: No acute findings. HARDWARE: None in the chest. OTHER: No other significant finding. IMPRESSION: Atelectasis. No infiltrate. TECHNICAL DOCUMENTATION: JOB ID: [id number] [employer]- All Rights Reserved Reading location - IP/workstation name: [email or web address]
[2018-07-11] MEDS ORDERED: IPRATROPIUM/ALBUTEROL 0.5-2.5 MG/3 ML AMPUL NEB ONE (17:08)
--- NOTE | 2018-07-11 17:13 | ER Document Report ---
ED General - General Chief Complaint: Leg Pain Stated Complaint: LEG PAIN Time Seen by Provider: 07/11/18 13:24 Primary Care Provider: ROBINSON MENDOZA MD [Primary Care Provider] - Follow up as needed Mode of Arrival: Medic Information source: Patient Notes: This is a 68-year-old female with a history of diabetes, COPD, hypertension who comes in by EMS because of swelling to both legs which is been going on for the past 3-1/2 months. Patient states she occasionally has some drainage from the legs just none today. She denies any fever. She does state that the lower legs hurt. She states that they called her primary care doctor (Dr. gary King) who referred them to the emergency room. She denies any chest pain. She denies any shortness of breath TRAVEL OUTSIDE OF THE [place] IN LAST 30 DAYS: No - HPI Onset: Other - Last 3 months Onset/Duration: Gradual Quality of pain: No pain Severity: None Pain Level: Denies Associated symptoms: denies: Chest pain, Fever, Shortness of breath Exacerbated by: Denies Relieved by: Denies Similar symptoms previously: Yes Recently seen / treated by doctor: Yes - Related Data Allergies/Adverse Reactions: oxycodone HCl [From Percocet] Allergy (Mild, Verified 07/11/18 12:50) itch all over Past Medical History - General Information source: Patient - Social History Smoking Status: Never Smoker Cigarette use (# per day): No Chew tobacco use (# tins/day): No Frequency of alcohol use: None Drug Abuse: None Lives with: Family Family History: Hypertension, Other Patient has suicidal ideation: No Patient has homicidal ideation: No - Past Medical History Cardiac Medical History: Reports: Hx Hypercholesterolemia, Hx Hypertension Denies: Hx Coronary Artery Disease, Hx Heart Attack Pulmonary Medical History: Reports: Hx Pneumonia Denies: Hx Asthma, Hx Bronchitis, Hx COPD Neurological Medical History: Denies: Hx Cerebrovascular Accident, Hx Seizures Endocrine Medical History: Reports: Hx Diabetes Mellitus Type 2 Renal/ Medical History: Denies: Hx Peritoneal Dialysis GI Medical History: Denies: Hx Hepatitis, Hx Hiatal Hernia, Hx Ulcer Musculoskeletal Medical History: Denies Hx Arthritis Infectious Medical History: Denies: Hx Hepatitis Past Surgical History: Reports: Hx Abdominal Surgery, Hx Hysterectomy, Hx Orthopedic Surgery, Hx Tubal Ligation. Denies: Hx Mastectomy, Hx Open Heart Surgery, Hx Pacemaker - Immunizations Hx Diphtheria, Pertussis, Tetanus Vaccination: Yes Hx Pneumococcal Vaccination: 01/05/17 Review of Systems - Review of Systems Constitutional: denies: Chills, Fever EENT: No symptoms reported Cardiovascular: denies: Chest pain, Palpitations, Heart racing Respiratory: No symptoms reported Gastrointestinal: No symptoms reported Genitourinary: No symptoms reported Female Genitourinary: No symptoms reported Musculoskeletal: See HPI Skin: See HPI - Patient states that her skin is very dry the lower extremities and sometimes she is got some weeping. Hematologic/Lymphatic: No symptoms reported Neurological/Psychological: No symptoms reported Physical Exam - Vital signs Vitals: Temp Pulse Resp BP Pulse Ox 98.0 F 90 14 104/68 100 07/11/18 13:05 07/11/18 13:05 07/11/18 13:05 07/11/18 13:05 07/11/18 13:05 Notes: Physical exam: GENERAL: Patient is alert and oriented x3, no acute distress HEAD: Atraumatic, normocephalic. EYES: Pupils equal round and reactive to light, extraocular movements intact, sclera anicteric, conjunctiva are normal. ENT: TMs normal, nares patent, oropharynx clear without exudates. Moist mucous membranes. NECK: Normal range of motion, supple without obvious mass or JVD. LUNGS: Breath sounds clear to auscultation bilaterally and equal. No wheezes rales or rhonchi. HEART: Regular rate and rhythm without murmurs, rubs or gallops. ABDOMEN: Soft, normoactive bowel sounds. No tenderness to palpation. No guarding, no rebound. No masses appreciated. EXTREMITIES: 2+ lower extremity edema. No erythema or evidence of cellulitis. No evidence of abscess. Does have dry skin and chronic venous stasis changes. NEUROLOGICAL: Cranial nerves II through XII grossly intact. Normal speech, moving all extremities. PSYCH: Normal mood, normal affect. SKIN: Noted above under the extremity exam Course - Re-evaluation Re-evalutation: 07/11/18 21:[address] Barbour (all labs including cardiac enzymes with repeat cardiac enzymes etc.) he feels patient is stable for outpatient [facility]. Patient is never complained of any chest pain or shortness of breath. Patient herself would like to go and has expressed her desire to follow-up with Dr. Mariee (she has a family member that follows up with him). - Vital Signs Vital signs: Temp Pulse Resp BP Pulse Ox 97.7 F 84 16 127/94 H 97 07/11/18 20:35 07/11/18 20:35 07/11/18 20:35 07/11/18 20:35 07/11/18 20:35 - Laboratory Result Diagrams: 07/11/18 14:02 07/11/18 14:02 Laboratory results interpreted by me: 07/11/18 07/11/18 07/11/18 14:02 14:02 14:02 RDW 14.7 H Sodium 149.0 H Chloride 109 H Carbon Dioxide 31 H Est GFR ( Amer) 52 L Est GFR (Non-Af Amer) 43 L Glucose 129 H Creatine Kinase 599 H - Diagnostic Test Radiology reviewed: Image reviewed, Reports reviewed - Chest x-ray shows no inf iltrates - EKG Interpretation by Me Rate: Normal Rhythm: NSR - EKG shows normal sinus rhythm with left axis deviation, no acute ST-T wave changes Discharge - Discharge Clinical Impression: Peripheral edema Condition: Stable Disposition: HOME, SELF-CARE Instructions: Edema, Peripheral ([facility]) Additional Instructions: As we discussed, your EKG look good tonight. Your chest x-ray was clear. Your labs showed no excess fluids. I want to look at the instruction sheet on edema. I want you to continue current medicines. I do recommend you follow-up with a cobbler upper: Given that your family is already seeing Dr. Mariee, I would call his office to schedule an appointment for outpatient echo and may be a stress test. Went to the ER for chest pain or shortness of breath. Prescriptions: Lanolin Alcohol/Mo/W.pet/[place] [Eucerin Creme] 454 gm TP DAILY #1 cream.gm. Referrals: ROBINSON MENDOZA MD [Primary Care Provider] - Follow up as needed
--- NOTE | 2018-07-11 17:44 | EKG REPORT ---
SEVERITY:- ABNORMAL ECG - SINUS RHYTHM LVH WITH IVCD AND SECONDARY REPOL ABNRM : Confirmed by: Billie Barbour MD 11-Jul-2018 17:43:11
[2018-07-11 17:45] LABS: CREATINE KINASE MB 3.97 ng/mL (<4.55)
[2018-07-11 17:47] LABS: TROPONIN I 0.04 ng/mL
[2018-07-11 20:45] VITALS: BP 127/94
== END 2018-07-11 20:45 | disposition home or self-care (01) ==
LOC: ER 12:45
DX: R60.9 Edema, unspecified (principal); M79.604 Pain in right leg; M79.605 Pain in left leg; E78.00 Pure hypercholesterolemia, unspecified; I10 Essential (primary) hypertension; E11.9 Type 2 diabetes mellitus without complications; Z98.51 Tubal ligation status; Z88.6 Allergy status to analgesic agent; Z90.710 Acquired absence of both cervix and uterus
CPT/HCPCS: 93005; 94640; 99284; 36415; 82553; 82550; 85025; 80053; 84484; 83880; 71046; 93010; A9270; J7620